=== PATIENT | female | born 1980 | race Caucasian/White ===

== ENCOUNTER 2017-07-10 02:11 | Emergency (ER) | payer SELFPAY ==
[2017-07-10] VITALS (10 sets, daily range): BP systolic 84–106; BP diastolic 50–62; PULSE 84–95; RESP 14–20; TEMP 97.6; O2SAT 96–100
[~2017-07-10] VITALS: Ht 162.6 cm; Wt 75.0 kg
[~2017-07-10 02:11] MED LIST: IBUP600T26 PO
[2017-07-10] MEDS ORDERED: SODIUM CHLOR 0.9% 1000 ML INJ 1,000 ML IV ONE (02:30)
--- NOTE | 2017-07-10 03:07 | PD ---
HPI Chief Complaint: Alcohol/Drug Intoxication Time Seen by Provider: 02:27 Travel History International Travel<30 days: No Contact w/Intl Traveler<30days: No Traveled to known affect area: No History of Present Illness HPI The patient is a 37 year old female who presents to the [facility] emergency department with a history of being noted to be unable to care for herself at her job prior to arrival. The patient reportedly started a new job at the [employer] today. The patient had been drinking on the job at least 8 doubles of liquor. The patient also reportedly took some unknown pill and smoked marijuana. The patient became incapacitated ambulance services were called. As the patient was unable to care for herself and unable to hold up herself at the bar, a police lieutenant precinct placed the patient under a Kumar's act. The patient is drowsy on arrival although able to be awakened with painful stimulation. The patient is unable to provide any other significant history. LMP: Unable to be obtained [facility] Past Medical History Narrative Medical The patient's past medical history is unable to be obtained. Medical History: Unable to Obtain Hx Anticoagulant Therapy: No Cardiovascular Problems: No Chemotherapy: No Cerebrovascular Accident: No Diabetes: No Diminished Hearing: No Respiratory: No Immunizations Current: Yes Tetanus Vaccination: Unknown ?: Not Tubal Ligation: Yes Past Surgical History Narrative Surgical The patient's past surgical history is unable to be obtained. Surgical History: Unable to Obtain Hysterectomy: No Social History Alcohol Use: Yes (pt drank 8+ double shots tonight ) Tobacco Use: Yes (/3 PPD) Substance Use: No Allergies-Medications (Allergen,Severity, Reaction): Coded Allergies: Penicillin (Verified Allergy, Severe, SWELLING, 06/18/16) Reported Meds & Prescriptions Reported Meds & Active Scripts Active Ibuprofen 600 Mg Tab 600 Mg PO Q8HR PRN Review of Systems ROS Limitations: Intoxication, Poor Historian Physical Exam Narrative General: The patient is awake well-developed well-nourished female in no acute distress, drowsy on arrival. Head and Neck exam: Head is normocephalic atraumatic. Eyes: Pupils are equal round and reactive to light. Nose: Midline septum with pink mucous membranes Mouth: Dentition unremarkable. Moist mucus membranes. Posterior oropharynx is not erythematous. No tonsillar hypertrophy. Uvula midline. Airway patent. Neck: No palpable lymphadenopathy. No nuchal rigidity. No thyromegaly. Cardiovascular: Regular rate and rhythm without murmurs, gallops, or rubs. Lungs: Clear to auscultation bilaterally. No wheezes, rhonchi, or rales. Abdomen: Soft, without tenderness to palpation in all 4 quadrants of the abdomen. No guarding, rebound, or rigidity. No tenderness on palpation of McBurney's point. Negative Patton's sign. Normal bowel sounds are audible. Extremities: No clubbing, cyanosis, or edema. 2+ pulses in all 4 extremities. No calf tenderness on palpation. Back: No costovertebral angle tenderness to palpation. Neurologic Exam: The patient is acutely intoxicated with a decreased level of consciousness and is therefore uncooperative with formal neurologic testing. She is able to move all extremities equally. She has no visible facial asymmetry. She has slightly slurred speech. Skin Exam: No rash noted. Intact skin that is warm and dry. Data Data Last Documented VS Vital Signs Date Time Temp Pulse Resp B/P Pulse Ox O2 Delivery O2 Flow Rate FiO2 07/10/17 03:30 88 16 101/55 100 Nasal Cannula 3 07/10/17 02:30 97.6 Orders Complete Blood Count With Diff (07/10/17 02:29) Comprehensive Metabolic Panel (07/10/17 02:29) Urinalysis - C+S If Indicated (07/10/17 02:29) Magnesium (Mg) (07/10/17 02:29) Iv Access Insert/Monitor (07/10/17 02:29) Ecg Monitoring (07/10/17 02:29) Oximetry (07/10/17 02:29) Ed Urine Pregnancytest Poc (07/10/17 02:29) Drug Screen, Random Urine (07/10/17 02:29) Alcohol (Ethanol) (07/10/17 02:29) Salicylates (Aspirin) (07/10/17 02:29) Tylenol (Acetaminophen) (07/10/17 02:29) Sodium Chlor 0.9% 1000 Ml Inj (Ns 1000 M (07/10/17 02:30) Potassium Chlor 20 Meq Premix (Kcl 20 Me (07/10/17 04:00) Ns + Kcl 20 Meq Inj (Ns + Kcl 20 Meq Inj (07/10/17 04:00) Labs Laboratory Tests Test 07/10/17 02:30 White Blood Count 8.8 TH/MM3 Red Blood Count 3.90 MIL/MM3 Hemoglobin 12.7 GM/DL Hematocrit 35.8 % Mean Corpuscular Volume 91.6 FL Mean Corpuscular Hemoglobin 32.6 PG Mean Corpuscular Hemoglobin 35.6 % Concent Red Cell Distribution Width 12.9 % Platelet Count 259 TH/MM3 Mean Platelet Volume 6.7 FL Neutrophils (%) (Auto) 58.7 % Lymphocytes (%) (Auto) 31.3 % Monocytes (%) (Auto) 8.9 % Eosinophils (%) (Auto) 0.8 % Basophils (%) (Auto) 0.3 % Neutrophils # (Auto) 5.2 TH/MM3 Lymphocytes # (Auto) 2.8 TH/MM3 Monocytes # (Auto) 0.8 TH/MM3 Eosinophils # (Auto) 0.1 TH/MM3 Basophils # (Auto) 0.0 TH/MM3 CBC Comment DIFF FINAL Differential Comment Urine Color LIGHT-YELLOW Urine Turbidity CLEAR Urine pH 5.0 Urine Specific [place] 1.004 Urine Protein NEG mg/dL Urine Glucose (UA) NEG mg/dL Urine Ketones NEG mg/dL Urine Occult Blood NEG Urine Nitrite NEG Urine Bilirubin NEG Urine Urobilinogen LESS THAN 2.0 MG/DL Urine Leukocyte Esterase NEG Urine WBC LESS THAN 1 /hpf Microscopic Urinalysis Comment CULT NOT INDICATED Sodium Level 144 MEQ/L Potassium Level 2.8 MEQ/L Chloride Level 112 MEQ/L Carbon Dioxide Level 22.9 MEQ/L Anion Gap 9 MEQ/L Blood Urea Nitrogen 10 MG/DL Creatinine 0.74 MG/DL Estimat Glomerular Filtration 88 ML/MIN Rate Random Glucose 72 MG/DL Calcium Level 7.5 MG/DL Magnesium Level 2.2 MG/DL Total Bilirubin 0.4 MG/DL Aspartate Amino Transf 22 U/L (AST/SGOT) Alanine Aminotransferase 32 U/L (ALT/SGPT) Alkaline Phosphatase 108 U/L Total Protein 6.7 GM/DL Albumin 3.2 GM/DL Salicylates Level 2.0 MG/DL Urine Opiates Screen NEG Acetaminophen Level LESS THAN 2.0 MCG/ML Urine Barbiturates Screen NEG Urine Amphetamines Screen NEG Urine Benzodiazepines Screen NEG Urine Cocaine Screen NEG Urine Cannabinoids Screen NEG Ethyl Alcohol Level 365 MG/DL MDM Medical Decision Making Medical Screen Exam Complete: Yes Emergency Medical Condition: Yes Medical Record Reviewed: Yes Differential Diagnosis Alcohol intoxication, versus other substance intoxication. Narrative Course During the course of the patients emergency department visit, the patients history, examination, and differential diagnosis were reviewed with the patient. The patient had IV access obtained and blood work sent for analysis. The patient was placed on a hotel security officer with oximetry and blood pressure monitoring. A bedside test was done and negative. An ECG was done on arrival. The patient's ECG reveals a sinus rhythm heart rate of 94, no acute ST segment elevation or depression. T waves are inverted in V1, V2. QRS duration is 82 ms, QTC 412 ms. The patient was initially provided normal saline 1 L IV fluid bolus. The patients laboratory studies were reviewed and remarkable for a white count of 8.8, hemoglobin 12.7, platelets 259 with 8.9 monocytes, CMP is remarkable for a potassium of 2.8, chloride 112, glucose 72, calcium 7.5, urinalysis is within normal limits, urine drug screen is negative, salicylate is 2, acetaminophen 2.0, alcohol level [id number]. Regarding the patient's hypokalemia the patient will be treated with 20 mEq of potassium chloride IV over 2 hours. The patient was continued on normal saline IV fluids with potassium supplementation. The patient will be observed in the emergency department for improvement in her mentation alcohol level goes down. Once the patient is awake and alert, the patient will be discharged home. Diagnosis Primary Impression: Alcohol intoxication Qualified Code: F10.929 - Alcoholic intoxication with complication Additional Impression: Altered mental status Qualified Code: R40.0 - Somnolence Referrals: Primary Care Physician as needed Patient Instructions: Alcohol Intoxication (ED), General Instructions Additional Instructions: Please avoid heavy alcohol intake. Med/Other Pt SpecificInfo: No Change to Meds Disposition: 01 DISCHARGE HOME Condition: Stable Maddy Calloway MD Jul 10, 2017 03:07
[2017-07-10 03:09] LABS: AUTOMATED NEUTROPHIL # 5.2 TH/MM3 (1.8-7.7); BASOPHIL % 0.3 % (0.0-2.0); BLOOD, URINE NEG (NEG); EOSINOPHIL # 0.1 TH/MM3 (0-0.4); EOSINOPHIL % 0.8 % (0.0-4.0); GLUCOSE,URINE NEG (NEG); HEMATOCRIT 35.8 % (35.0-46.0); HEMO FLAGS DIFF FINAL; KETONE, URINE NEG (NEG); LYMPH % 31.3 % (9.0-44.0); LYMPHOCYTE # 2.8 TH/MM3 (1.0-4.8); MEAN CELL VOLUME 91.6 FL (80.0-100.0); MEAN CORPUSCULAR HEMOGLOBIN 32.6 PG (27.0-34.0); MEAN CORPUSCULAR HGB CONC 35.6 % (32.0-36.0); MONO % 8.9 % (0.0-8.0); NEUT % 58.7 % (16.0-70.0); NITRITE,URINE NEG (NEG); PLATELET COUNT 259 TH/MM3 (150-450); RED CELL DISTRIBUTION WIDTH 12.9 % (11.6-17.2); URINE COLOR LIGHT-YELLOW (YELLW/STRAW); WHITE BLOOD COUNT 8.8 TH/MM3 (4.0-11.0)
[2017-07-10 03:10] LABS: COMMENT (UR) CULT NOT INDICATED; CULTURE IF INDICATED CULT NOT INDICATED
[2017-07-10 03:44] LABS: BLOOD UREA NITROGEN 10 MG/DL (7-18); GLOMERULAR FILTRATION RATE 88 ML/MIN (>89)
[2017-07-10 03:45] LABS: ALKALINE PHOSPHATASE 108 U/L (45-117); ALT (GPT) 32 U/L (10-53); ANION GAP 9 MEQ/L (5-15); AST (GOT) 22 U/L (15-37); BICARBONATE 22.9 MEQ/L (21.0-32.0); CHLORIDE 112 MEQ/L (98-107); MAGNESIUM 2.2 MG/DL (1.5-2.5); SODIUM (NA) 144 MEQ/L (136-145); TOTAL BILIRUBIN ADULT 0.4 MG/DL (0.2-1.0)
[2017-07-10 03:46] LABS: ACETAMINOPHEN LESS THAN 2.0 MCG/ML (10.0-30.0); ALCOHOL 365 MG/DL (0-5)
[2017-07-10 03:50] LABS: POTASSIUM 2.8 MEQ/L (3.5-5.1)
[2017-07-10] MEDS ORDERED: NS + KCL 20 MEQ INJ 1,000 ML IV SCH (04:00)
[2017-07-10] MEDS ORDERED: POTASSIUM CHLOR 20 MEQ PREMIX 100 ML IV ONE (04:00)
--- NOTE | 2017-07-10 08:18 | EKG ---
Date Performed: 07/10/2017 Time Performed: 02:21:15 PTAGE: 37 years EKG: Sinus rhythm NORMAL ECG NO PREVIOUS TRACING DOCTOR: Chris Reynolds Interpretating Date/Time 07/10/2017 08:16:07
== END 2017-07-10 10:39 | disposition home or self-care (01) ==
LOC: NEPE 02:11
DX: F10.129 Alcohol abuse with intoxication, unspecified (principal); R40.0 Somnolence; F17.210 Nicotine dependence, cigarettes, uncomplicated; Z88.0 Allergy status to penicillin
CPT/HCPCS: 80053; 80307; 81001; 83735; 84703; 85025; 93005; 96361; 96365; 96366; 96376; 99284; J3480; J7030